=== PATIENT | female | born 1985 | race African-American/Black ===

== ENCOUNTER 2016-09-17 10:20 | Emergency (ER) | payer OTHER ==
[~2016-09-17] VITALS: Ht 154.9 cm; Wt 86.2 kg
[2016-09-17 10:24] VITALS: BP 132/84
--- NOTE | 2016-09-17 11:00 | ED NECK/BACK PAIN COMPLAINT ---
History of Present Illness General Chief Complaint: Low Back Pain/Injury Stated Complaint: LOW BACK PAIN Source: patient Exam Limitations: no limitations Vital Signs & Intake/Output Vital Signs & Intake/Output Vital Signs Date Time Temp Pulse Resp B/P Pulse O2 O2 Flow FiO2 Ox Delivery Rate 09/17 1109 97.6 09/17 1024 97.6 80 20 132/84 96 Room Air Allergies Coded Allergies: No Known Drug Allergies (06/07/16) Reconcile Medications Cyclobenzaprine HCl 10 MG TABLET 1 TAB PO QPM PRN MUSCLE RELAXOR Ibuprofen 600 MG TABLET 1 TAB PO TID PRN PAIN with food Triage Note: PT TO ED STATING "MY BACK ACHES" X 2 WEEKS. DENIES ANY INJURY. TOOK TYLENOL WITH SOME RELIEF. Triage Nurses Notes Reviewed? yes Onset: Gradual Duration: intermittent Timing: recent history Location: paraspinous muscles Radiation: none Method of Injury: unknown Loss of Consciousness: no loss of consciousness : No Patient currently breastfeeds: No HPI: Patient is a 31-year-old female with an unremarkable past medical history of present emergent with a two-week history of intermittent right-sided low back and thoracic muscular pain. Patient denies any mechanism of injury Patient has been taken Tylenol and aspirin with relief of symptoms. Patient states that movement makes worse. Denies any falls or trauma. Denies any lower extremity or upper extremity radiating pain numbness weakness. Denies any abdominal pain nausea vomiting dysuria hematuria me vaginal bleeding vaginal discharge or saddle paresthesia bowel or bladder incontinence. (THIERNO PORRAS) Past History Travel History Traveled to [place] past 21 day No Medical History Any Pertinent Medical History? none Neurological: NONE EENT: NONE Cardiovascular: NONE Respiratory: NONE Gastrointestinal: NONE Hepatic: NONE Renal: NONE Musculoskeletal: NONE Psychiatric: NONE Endocrine: NONE Surgical History Surgical History: non-contributory Psychosocial History What is your primary language Swedish Tobacco Use: Current Daily Use Daily Tobacco Use Amount/Type: => 5 Cigarettes daily ETOH Use: occasional use Illicit Drug Use: denies illicit drug use Family History Hx Contributory? No (THIERNO PORRAS) Review of Systems Review of Systems Constitutional: Reports: no symptoms. Eyes: Reports: no symptoms. Ears, Nose, Throat, Mouth: Reports: no symptoms. Respiratory: Reports: no symptoms. Cardiovascular: Reports: no symptoms. Gastrointestinal/Abdominal: Reports: no symptoms. Musculoskeletal: Reports: see HPI, back pain, muscle pain, muscle stiffness. Skin: Reports: no symptoms. Neurological/Psychological: Reports: no symptoms. All Other Systems: Reviewed and Negative (THIERNO PORRAS) Physical Exam Physical Exam General Appearance: no apparent distress, alert, comfortable Neck: normal inspection, supple, full range of motion Comments: Well-developed well-nourished person in no acute distress HEENT: Normal EENT exam, Neck: Supple, no lymphadenopathy, normal range of motion without pain or tenderness Back: Normal inspection, full active range of motion noted right lumbar and thoracic paralumbar muscular tenderness, no central spinous tenderness Cardiovascular: Regular rate and rhythms no murmurs rubs or gallops, normal JVP Respiratory: Chest nontender. No respiratory distress.breath sounds clear to auscultation bilaterally Abdomen: Soft, nontender nondistended, no appreciable organomegaly. Normal bowel sounds. No ascites Extremity: No edema, no calf tenderness to palpation, normal and equal pulses. Bilateral upper extremity and lower extremity myotomes dermatomes DTRs intact Neuro: Alert oriented x3, motor sensory normal, Skin: No appreciable rash on exposed skin, skin is warm and dry. Psych: Mood and affect is normal, memory and judgment is normal. (THIERNO PORRAS) Progress Differential Diagnosis: AAA, aortic dissection, C spine injury, carotid dissection, cauda equina syn, herniated disc, myofascial strain, pyelo/UTI, sciatica, spinal cord inj, thoracic outlet syn, T/L spine injury, ureterolithiasis Plan of Care: Orders Procedure Date/time Status URINE 09/17 1033 Complete URINALYSIS 09/17 1033 Complete Laboratory Tests 09/17/16 1104: Urine Color YEL, Urine Clarity CLEAR, Urine pH 7.0, Ur Specific [place] 1.020, Urine Protein NEG, Urine Ketones NEG, Urine Nitrite NEG, Urine Bilirubin NEG, Urine Urobilinogen 0.2, Ur Leukocyte Esterase NEG, Ur Microscopic SEDIMENT EXAMINED, Urine RBC 3-5, Urine WBC 10-15 H, Ur Epithelial Cells FEW, Urine Mucus FEW, Urine Hemoglobin MOD H, Urine Glucose NEG, Urine Test NEGATIVE Patient currently is in no apparent distress and has nontender abdomen and reproducible pain upon lumbar spine movements. Urine analysis will be obtained. Patient was given Motrin Patient had bilateral extremity intact neurovascular exam Patient currently is menstruating therefore the urine showing blood is most likely the etiology. No concerns of kidney stone at this time. Patient had normal steady gait on discharge (THIERNO PORRAS) Departure Departure Disposition: HOME OR SELF CARE Condition: Stable Clinical Impression Primary Impression: Back strain Referrals: PATIENT HAS NO PRIMARY CARE DR (PCP/Family) Additional Instructions: As discussed begin icing the area directly 20 minutes every 2 hours. Begin the prescription Motrin for pain and inflammation. Begin the prescription of cyclobenzaprine for muscle relaxation. Activity as tolerated. Tomorrow please call and follow up to establish a primary care doctor is a list of referrals have been provided to the emergency room. If symptoms worsen return to emergency room. Prescriptions are waiting at your pharmacy Departure Forms: Customer Survey General Discharge Information Prescriptions: Current Visit Scripts Ibuprofen 1 TAB PO TID PRN PAIN #30 TAB with food Cyclobenzaprine HCl 1 TAB PO QPM PRN MUSCLE RELAXOR #10 TAB (THIERNO PORRAS) PA/EQUAL OPPORTUNITY DIRECTOR Co-Sign Statement Statement: ED Attending supervision documentation- [] I saw and evaluated the patient. I have also reviewed all the pertinent lab results and diagnostic results. I agree with the findings and the plan of care as documented in the PA's/EQUAL OPPORTUNITY DIRECTOR's documentation. [X] I have reviewed the ED Record and agree with the PA's/EQUAL OPPORTUNITY DIRECTOR's documentation. [] Additions or exceptions (if any) to the PAs/EQUAL OPPORTUNITY DIRECTOR's note and plan are summarized below: [] (JAYDE ROMAN DO)
[2016-09-17] MEDS ORDERED: CYCLOBENZAPRINE10 M1 PO (11:37)
[2016-09-17] MEDS ORDERED: IBUPROFEN600 M1 PO (11:37)
== END 2016-09-17 11:50 ==
LOC: ERH 10:20
DX: S39.012A Strain of muscle, fascia and tendon of lower back, initial encounter (principal)
CPT/HCPCS: 81001; 81025